=== PATIENT | female | born 1985 | race African-American/Black ===

== ENCOUNTER 2022-07-10 14:25 | Emergency (ER) | payer MEDICAID ==
[~2022-07-10] VITALS: Ht 160 cm; Wt 82.0 kg
[2022-07-10 14:45] VITALS: BP 126/87
== END 2022-07-10 20:15 | disposition home or self-care (01) ==
LOC: ER 14:25
DX: S09.8XXA Other specified injuries of head, initial encounter (principal); Y04.2XXA Assault by strike against or bumped into by another person, initial encounter; R03.0 Elevated blood-pressure reading, without diagnosis of hypertension; Y93.89 Activity, other specified; Y92.89 Other specified places as the place of occurrence of the external cause
CPT/HCPCS: 99284